=== PATIENT | female | born 1980 | race American Indian/Alaskan Native ===

== ENCOUNTER 2016-10-25 12:48 | Emergency (ER) | payer OTHER ==
[2016-10-25 12:49] VITALS: BMI 35.4
[2016-10-25 12:59] VITALS: BP 152/81; PULSE 99; RESP 18; TEMP 98.7; O2SAT 99
--- NOTE | 2016-10-25 13:31 | ED PDOC ---
Arrival/HPI - General Chief Complaint: Cough, Cold, Congestion Time Seen by Provider: 10/25/16 13:00 Historian: Patient - History of Present Illness Narrative History of Present Illness (Text): 10/25/16 13:00 This 36 yo female presents with pmh anemia, presents to this ED c/o nasal congestion, sinus pressure, and cough since this morning. Patient admits similar symptoms in the past, and Dx sinusitis. Patient denies sob, cp, abdominal pain, dizziness, weakness, diplopia, dysarthria, earache, sore throat , paresthesias, queen, n/v, or abnormal gait. Time/Duration: Other (see hpi) Context: Home Past Medical History - Provider Review Nursing Documentation Reviewed: Yes - Infectious Disease Hx of Infectious Diseases: None - Tetanus Immunization Tetanus Immunization: Unknown - Cardiac Hx Cardiac Disorders: No Hx Hypertension: No - Pulmonary Hx Tuberculosis: No - Neurological HX Cerebrovascular Accident: No Hx Seizures: No - Hematological/Oncological Hx Anemia: Yes - Musculoskeletal/Rheumatological Hx Back Pain: Yes - Genitourinary/Gynecological Hx Sexually Transmitted Diseases: No - Psychiatric Hx Depression: Yes Hx Substance Use: Yes - Past Surgical History Past Surgical History: No Previous - Surgical History Hx Dilation and Curettage: Yes Other/Comment: DNC - Anesthesia Hx Anesthesia: No Hx Anesthesia Reactions: No Hx Malignant Hyperthermia: No - Suicidal Assessment Feels Threatened In Home Enviroment: No Family/Social History - Physician Review Nursing Documentation Reviewed: Yes Family/Social History: No Known Family HX Smoking Status: Former Smoker Hx Alcohol Use: Yes Hx Substance Use: Yes Substance used: mark Hx Substance Use Treatment: No Allergies/Home Meds Allergies/Adverse Reactions: Allergies No Known Allergies Allergy (Verified 10/25/16 12:59) Review of Systems - Review of Systems Constitutional: Normal. absent: Fatigue, Weight Change, Fevers Eyes: Normal ENT: Rhinorrhea, Sinus Congestion. absent: Sore Throat Respiratory: Normal, Cough. absent: SOB, Sputum, Wheezing Cardiovascular: Normal Gastrointestinal: Normal. absent: Abdominal Pain, Nausea, Vomiting Genitourinary Female: Normal. absent: Dysuria, Frequency, Hematuria, Vaginal Bleeding Musculoskeletal: Normal Skin: Normal Neurological: Normal. absent: Headache, Dizziness Endocrine: Normal Hemo/Lymphatic: Normal Psychiatric: Normal Physical Exam Vital Signs Temp Pulse Resp BP Pulse Ox 10/25/16 12:56 98.7 F 99 H 18 152/81 H 99 Temperature: Afebrile Blood Pressure: Normal Pulse: Regular Respiratory Rate: Normal Appearance: Positive for: Well-Appearing, Non-Toxic, Comfortable Pain Distress: None Mental Status: Positive for: Alert and Oriented X 3 - Systems Exam Head: Present: Atraumatic, Normocephalic, Other (Mild frontal and maxillary sinuses tenderness) Pupils: Present: PERRL Extroacular Muscles: Present: EOMI Conjunctiva: Present: Normal Mouth: Present: Moist Mucous Membranes Neck: Present: Normal Range of Motion Respiratory/Chest: Present: Clear to Auscultation, Good Air Exchange. No: Respiratory Distress, Accessory Muscle Use Cardiovascular: Present: Regular Rate and Rhythm, Normal S1, S2. No: Murmurs Abdomen: Present: Normal Bowel Sounds. No: Tenderness, Distention, Peritoneal Signs Back: Present: Normal Inspection. No: CVA Tenderness Upper Extremity: Present: Normal Inspection, Normal ROM, NORMAL PULSES, Neurovascularly Intact, Capillary Refill < 2s. No: Cyanosis, Edema Lower Extremity: Present: Normal Inspection, NORMAL PULSES, Normal ROM, Neurovascularly Intact, Capillary Refill < 2 s. No: Edema Neurological: Present: GCS=15, CN II-XII Intact, Speech Normal, Motor Func Grossly Intact, Normal Sensory Function, Normal Cerebellar Funct, Gait Normal, Memory Normal Skin: Present: Warm, Dry, Normal Color. No: Rashes Psychiatric: Present: Alert, Oriented x 3, Normal Insight, Normal Concentration Medical Decision Making ED Course and Treatment: 10/25/16 13:31 Re-evaluation. Patient feels better. Discussed results and plan with patient who expresses understanding. All questions answered and there is agreement with the plan to discharge home with instructions. Patient stable for discharge. Return if symptoms persist or worsen Re-evaluation Time: 13:31 Reassessment Condition: Re-examined, Unchanged Disposition/Present on Arrival - Present on Arrival Any Indicators Present on Arrival: No History of DVT/PE: No History of Uncontrolled Diabetes: No Urinary Catheter: No History of Decub. Ulcer: No History Surgical Site Infection Following: None - Disposition Have Diagnosis and Disposition been Completed?: Yes Diagnosis: Sinusitis Disposition: HOME/ ROUTINE Disposition Time: 13:31 Patient Problems: Current Active Problems Problem Status Onset Sinusitis Acute Condition: GOOD Discharge Instructions (ExitCare): Upper Respiratory Infection (ED) Additional Instructions: Call private doctor for follow up visit in 1-2 days. Take medication as instructed. Return to emergency if symptoms worsen, dizziness, weakness, or abnormal walk. Prescriptions: Amoxicillin [Amoxil 500 mg Cap] 500 mg PO TID #30 cap Promethazine/Codeine [Codeine/Promethazine 10 MG/5 Ml-6.25 MG/5 Ml] 5 ml PO Q6H PRN #90 ml PRN Reason: Cough Referrals: [facility] [Outside] - Follow up with primary [facility] [Outside] - Follow up with primary Forms: WORK NOTE
== END 2016-10-25 13:59 | disposition home or self-care (01) ==
LOC: ED 12:48
DX: J32.9 Chronic sinusitis, unspecified (principal)

== ENCOUNTER 2016-12-19 19:54 | Observation (INO) | payer OTHER ==
[2016-12-19 19:56] VITALS: BMI 35.4
[2016-12-19] MEDS ORDERED: Sodium Chloride 0.9% 1,000 ML IV STA (20:34)
--- NOTE | 2016-12-19 20:38 | ED PDOC ---
Arrival/HPI - General Chief Complaint: Female Genitourinary Time Seen by Provider: 12/19/16 20:11 - History of Present Illness Narrative History of Present Illness (Text): 12/19/16 20:35 36yo female, with painful menses and heavy menstrual bleedig x3 days. Pt states she has a hx of these symptoms for the past 2 years. Pt also states that she usually has lower abd pain and constipation while she is menstruating and this is not unusual for her. Denies n/v, denies f/c. States she has no cp/sob/parrish. Denies weakness or lightheadedness. No other complaints. Past Medical History - Provider Review Nursing Documentation Reviewed: Yes - Infectious Disease Hx of Infectious Diseases: None - Tetanus Immunization Tetanus Immunization: Unknown - Cardiac Hx Cardiac Disorders: No Hx Hypertension: No - Pulmonary Hx Tuberculosis: No - Neurological HX Cerebrovascular Accident: No Hx Seizures: No - Hematological/Oncological Hx Anemia: Yes - Musculoskeletal/Rheumatological Hx Back Pain: Yes - Genitourinary/Gynecological Hx Sexually Transmitted Diseases: No - Psychiatric Hx Depression: Yes Hx Substance Use: No (denies) - Past Surgical History Past Surgical History: No Previous - Surgical History Hx Dilation and Curettage: Yes Other/Comment: DNC - Anesthesia Hx Anesthesia: No Hx Anesthesia Reactions: No Hx Malignant Hyperthermia: No - Suicidal Assessment Feels Threatened In Home Enviroment: No Family/Social History Family/Social History: Unknown Family HX Smoking Status: Current Some Days Smoker Hx Alcohol Use: Yes Frequency of alcohol use: Socially Hx Substance Use: No (denies) Substance used: mark Hx Substance Use Treatment: No Allergies/Home Meds Allergies/Adverse Reactions: Allergies No Known Allergies Allergy (Verified 10/25/16 12:59) Home Medications: Home Meds Medication Instructions Recorded Confirmed Ferrous Sulfate [Feosol] 325 mg PO DAILY 12/19/16 12/19/16 Physical Exam - Physical Exam Narrative Physical Exam (Text): 12/19/16 20:37 - Review of Systems Constitutional: Normal. absent: Fatigue, Weight Change, Fevers Eyes: Normal ENT: denies sore throat, denies tristhmus Respiratory: Normal. absent: SOB, Cough, Sputum Cardiovascular: absent: Chest Pain, Palpitations, Syncope Gastrointestinal: lower abd discomfort. absent: Diarrhea, Nausea, Vomiting Genitourinary: vaginal bleeding absent: Dysuria, Frequency, Hematuria Musculoskeletal: Normal. absent: Arthralgias, Back Pain, Neck Pain Skin: no rashes, no erythema Neurological: absent: Focal Weakness Endocrine: Normal Hemo/Lymphatic: Normal Psychiatric: No suicidal or homicidal ideations Physical exam Patient appears age appropriate in no distress, speaking full sentences without difficulty - Systems Exam Head: Present: Atraumatic, Normocephalic Pupils: Present: PERRL Extroacular Muscles: Present: EOMI Conjunctiva: Present: Normal Mouth: Present: Moist Mucous Membranes Neck: Present: Normal Range of Motion. No: MIDLINE TENDERNESS, Paraspinal Tenderness Respiratory/Chest: Present: Clear to Auscultation, Good Air Exchange. No: Respiratory Distress, Accessory Muscle Use, Tachypneic Cardiovascular: Present: Regular Rate and Rhythm, Normal S1, S2, Peripheal Pulses Present. No: Murmurs Abdomen: Present: Normal Bowel Sounds. No: Tenderness, Distention, Peritoneal Signs, Rebound, Guarding Back: Present: Normal Inspection. No: Midline Tenderness, Paraspinal Tenderness Upper Extremity: Present: Normal Inspection. No: Cyanosis, Edema Lower Extremity: Present: Normal Inspection. No: Edema Neurological: Present: GCS=15, Speech Normal, cranial nerves II through XII fully intact with no cerebellar abnormality, neurosensory fully intact. No focal neurological deficits. Skin: Present: Warm, Dry, Normal Color. No: Rashes Lymphatic: Present: OX3, NI, NC Psychiatric: Present: Alert, Oriented x 3, Normal Insight, Normal Concentration Vital Signs Reviewed: Yes Vital Signs Temp Pulse Resp BP Pulse Ox 12/19/16 19:58 99.1 F 90 20 149/96 H 98 Temperature: Afebrile Blood Pressure: Hypertensive (asymptomatic. pt informed of relevated BP and instructed to f/u with PMD) Pulse: Regular Respiratory Rate: Normal Appearance: Positive for: Well-Appearing Pain Distress: None Mental Status: Positive for: Alert and Oriented X 3 Medical Decision Making ED Course and Treatment: 12/19/16 20:38 86-year-old female with dysmenorrhea and menorrhagia. Patient states that she has a history of constipation and lower abdominal cramping during her menses and this is unusual for her. Patient also states that she has a history of anemia. Denies any chest pain, shortness of breath, dyspnea on exertion, feeling weak/dizzy or lightheaded. Differential diagnosis includes but not limited to: Anemia versus dysmenorrhea Pain medication, hydration, labs ordered. 12/19/16 21:59 Hb 6.8 VSS pt agreeable to transfusion order placed states she has no PMD at [facility], Dr. Nando montero, awaiting callback 12/19/16 22:13 Dr. Freed states to admit to hospitalist service (per area secretary) dw Dr. Cali, accepted admission pt aware of and agrees with plan 12/19/16 22:29 Chest xray interpreted by ED physician shows no pneumothorax, no cardiomegaly, no infiltrates - Critical Care Critical Care Minutes: 30 minutes - Lab Interpretations Lab Results: 12/19/16 21:23 12/19/16 21:23 Lab Results 12/19/16 21:23: Blood Type Pending, Antibody Screen Pending, Crossmatch See Detail, BBK History Checked Patient has bt 12/19/16 21:23: Sodium 135, Potassium 3.5 L, Chloride 101, Carbon Dioxide 26, Anion Gap 12, BUN 7, Creatinine 0.6, Est GFR ( Amer) > 60, Est GFR (Non- Af Amer) > 60, Random Glucose 95, Calcium 8.8, Total Bilirubin 0.3, AST 23, ALT 28, Alkaline Phosphatase 50, Total Protein 8.8 H, Albumin 3.6, Globulin 5.2, Albumin/Globulin Ratio 0.7 L 12/19/16 21:23: PT 11.8, INR 1.09 H, APTT 24.6 12/19/16 21:23: WBC 6.1, RBC 3.28 L, Hgb 6.8 L* D, Hct 22.9 L, MCV 69.8 L, MCH 20.7 L, MCHC 29.7 L, RDW 18.4 H, Plt Count 528 H, MPV 7.3, Gran % 64.5, Lymph % (Auto) 25.4, Cedar % (Auto) 8.1 H, Eos % (Auto) 1.5, Baso % (Auto) 0.5, Gran # 3.91, Lymph # 1.5, Cedar # 0.5, Eos # 0.1, Baso # 0.03 - RAD Interpretation Radiology Orders: 12/19/16 22:04 CHEST PORTABLE [RAD] Stat - Medication Orders Current Medication Orders: Discontinued Medications Sodium Chloride (Sodium Chloride 0.9%) 1,000 mls @ 1,000 mls/hr IV .Q1H STA Stop: 12/19/16 21:33 Last Admin: 12/19/16 21:33 Dose: 1,000 mls/hr Ketorolac Tromethamine (Toradol) 30 mg IVP STAT STA Stop: 12/19/16 20:35 Last Admin: 12/19/16 21:31 Dose: 30 mg Morphine Sulfate (Morphine) 4 mg IVP STAT STA Stop: 12/19/16 21:59 Disposition/Present on Arrival - Present on Arrival Any Indicators Present on Arrival: No History of DVT/PE: No History of Uncontrolled Diabetes: No Urinary Catheter: No History of Decub. Ulcer: No History Surgical Site Infection Following: None - Disposition Have Diagnosis and Disposition been Completed?: Yes Diagnosis: Anemia Disposition: HOSPITALIZED Disposition Time: 22:13 Patient Plan: Observation Patient Problems: Current Active Problems Problem Status Onset Anemia Acute Condition: FAIR Referrals: Abbey Palma MD [Primary Care Provider] - Follow up with primary Forms: [employer] ([place])
[2016-12-19 21:38] LABS: BASO # 0.03 K/mm3 (0.0-2.0); BASO % 0.5 % (0.0-3.0); EOS # 0.1 (0.0-0.7); EOS % 1.5 % (1.5-5.0); GRAN # 3.91 (1.4-6.5); GRAN % 64.5 % (50.0-68.0); LYMPH # 1.5 (1.2-3.4); LYMPH % 25.4 % (22.0-35.0); MEAN CELL VOLUME 69.8 fL (80.0-105.0); MEAN CORPUSCULAR HEMOGLOBIN 20.7 pg (25.0-35.0); MEAN CORPUSCULAR HGB CONC 29.7 g/dl (31.0-37.0); MEAN PLATELET VOLUME 7.3 fl (7.0-11.0); MONO # 0.5 (0.1-0.6); MONO % 8.1 % (1.0-6.0); PLATELET COUNT 528 10^3/uL (120.0-450.0); RBC 3.28 10^6/uL (3.5-6.1); RED CELL DISTRIBUTION WIDTH 18.4 % (11.5-14.5); WHITE BLOOD COUNT 6.1 10^3/ul (4.5-11.0)
[2016-12-19 21:43] LABS: HEMOGLOBIN 6.8 gm/dL (12.0-16.0)
[2016-12-19 21:48] LABS: INR 1.09 (0.93-1.08); PARTIAL THROMBOPLASTIN TIME 24.6 Seconds (23.7-30.8); PROTHROMBIN TIME 11.8 Seconds (9.9-11.8)
[2016-12-19 21:50] LABS: ALB/GLOB RATIO 0.7 (1.1-1.8); ALBUMIN 3.6 g/dL (3.0-4.8); ALT/SGPT 28 U/L (7-56); AST/SGOT 23 U/L (15-39); BLOOD UREA NITROGEN 7 mg/dL (7-21); CALCIUM 8.8 mg/dL (8.4-10.5); GFR AFRICAN-AMERICAN > 60; GFR NON-AFRICAN AMERICAN > 60
[2016-12-19] MEDS ORDERED: Morphine 4 mg/ml ISec IVP STA (21:58)
[2016-12-19] MEDS ORDERED: Potassium Chloride 40 mEq/30 ml LIQ UD PO STA (23:11)
--- NOTE | 2016-12-19 23:51 | CP.PCM.HP ---
<Skip Ortiz - Last Filed: 12/19/16 23:45> History of Present Illness - History of Present Illness History of Present Illness: CC: abd pain, weakness, lightheadedness 36 F with pmh of anemia and menorrhagia presents to the ED with abdominal pain, lightheadedness, and weak. Pt states that her period started 3 days ago. She states that this time it is more painful and bleeding more than usual. She states that her abd pain is 9/10 in severity. Denies taking anything for the pain. Pt states that it radiates to her R back. Pt also c/o weakness and lightness. She denies any falls. No other complaints. Denies any f/c, sob, cp, palpitations, n/v/d. PMH: Menorrhagia PSH: D & C last jan med: denies ALL: none SH: drinks and smoke twice a month, denies any drug use, FH: denies Present on Admission - Present on Admission Any Indicators Present on Admission: No Review of Systems - Review of Systems All systems: reviewed and no additional remarkable complaints except (HPI) Past Patient History - Infectious Disease Hx of Infectious Diseases: None - Tetanus Immunizations Tetanus Immunization: Unknown - Past Social History Smoking Status: Current Some Days Smoker - CARDIAC Hx Cardiac Disorders: No Hx Hypertension: No - PULMONARY Hx Tuberculosis: No - NEUROLOGICAL HX Cerebrovascular Accident: No Hx Seizures: No - HEMATOLOGICAL/ONCOLOGICAL Hx Anemia: Yes - MUSCULOSKELETAL/RHEUMATOLOGICAL Hx Back Pain: Yes - GENITOURINARY/GYNECOLOGICAL Hx Sexually Transmitted Disorders: No - PSYCHIATRIC Hx Depression: Yes Hx Substance Use: No (denies) - SURGICAL HISTORY Hx Dilation and Curettage: Yes Other/Comment: DNC - ANESTHESIA Hx Anesthesia: No Hx Anesthesia Reactions: No Hx Malignant Hyperthermia: No Meds Allergies/Adverse Reactions: Allergies Allergy/AdvReac Type Severity Reaction Status Date / Time No Known Allergies Allergy Verified 10/25/16 12:59 Physical Exam - Constitutional Appears: No Acute Distress - Head Exam Head Exam: ATRAUMATIC, NORMAL INSPECTION, NORMOCEPHALIC - Eye Exam Eye Exam: EOMI, Normal appearance, PERRL Pupil Exam: NORMAL ACCOMODATION, PERRL - ENT Exam ENT Exam: Mucous Membranes Moist, Normal Exam - Neck Exam Neck exam: Positive for: Normal Inspection - Respiratory Exam Respiratory Exam: Clear to Auscultation Bilateral, NORMAL BREATHING PATTERN. absent: Wheezes - Cardiovascular Exam Cardiovascular Exam: REGULAR RHYTHM, RRR, +S1, +S2 - GI/Abdominal Exam GI & Abdominal Exam: Normal Bowel Sounds, Soft. absent: Tenderness - Extremities Exam Extremities exam: Positive for: normal inspection. Negative for: calf tenderness - Back Exam Back exam: NORMAL INSPECTION - Neurological Exam Neurological exam: Alert, CN II-XII Intact, Normal Gait, Oriented x3, Reflexes Normal - Psychiatric Exam Psychiatric exam: Normal Affect, Normal Mood - Skin Skin Exam: Dry, Intact, Normal Color, Warm Results - Vital Signs Recent Vital Signs: Last Vital Signs Temp 99.1 F 12/19/16 19:58 Pulse 88 12/19/16 22:45 Resp 18 12/19/16 22:45 BP 136/84 12/19/16 22:45 Pulse Ox 99 12/19/16 22:45 - Labs Result Diagrams: 12/19/16 21:23 12/19/16 21:23 Assessment & Plan - Assessment and Plan (Free Text) Assessment: 36 F with pmh of anemia and menorrhagia presents to the ED with abdominal pain, lightheadedness, and weak. Found to be anemic with Hb of 6.8. 1. Symptomatic anemia - Hb of 6.8 - Obtain consent for blood transfusion - Transfuse 1 unit PRBC - F/u CBC in the am - F/U anemia work up - Pain control - Daily labs 2. Hypokalemia - KCl 40meq PO x 1 - F/u morning CMP 3. GI/DVT ppx - protonix and SCDs Case and plan was seen, reviewed and discussed with Dr Cali. <Krish Cali - Last Filed: 12/20/16 06:14> Results - Vital Signs Recent Vital Signs: Last Vital Signs Temp 98.8 F 12/20/16 05:59 Pulse 76 12/20/16 05:59 Resp 18 12/20/16 05:59 BP 107/67 12/20/16 05:59 Pulse Ox 99 12/19/16 22:45 - Labs Result Diagrams: 12/19/16 21:23 12/19/16 21:23 Attending/Attestation - Attestation I have personally seen and examined this patient.: Yes I have fully participated in the care of the patient.: Yes I have reviewed all pertinent clinical information: Yes Notes (Text): 12/20/16 06:12 Patient was seen when she was in when she was in room #9 in the ER. Agree with history, physical examination, assessment and plan.
[2016-12-20] MEDS ORDERED: Pantoprazole 40 mg EC Tab PO SCH (06:00)
--- NOTE | 2016-12-20 07:49 | RAD ---
HISTORY: anemia, admission COMPARISON: 03/12/2016. FINDINGS: LUNGS: No active pulmonary disease. PLEURA: No significant pleural effusion identified, no pneumothorax apparent. CARDIOVASCULAR: There is borderline cardiomegaly. OSSEOUS STRUCTURES: No significant abnormalities. VISUALIZED UPPER ABDOMEN: Normal. OTHER FINDINGS: None. IMPRESSION: No active pulmonary disease.
[2016-12-20 09:08] LABS: BASO # 0.03 K/mm3 (0.0-2.0); BASO % 0.6 % (0.0-3.0); EOS # 0.1 (0.0-0.7); GRAN # 2.65 (1.4-6.5); GRAN % 56.4 % (50.0-68.0); HEMOGLOBIN 8.4 gm/dL (12.0-16.0); LYMPH # 1.5 (1.2-3.4); LYMPH % 32.1 % (22.0-35.0); MEAN CELL VOLUME 72.9 fL (80.0-105.0); MEAN CORPUSCULAR HEMOGLOBIN 22.5 pg (25.0-35.0); MEAN CORPUSCULAR HGB CONC 30.9 g/dl (31.0-37.0); MEAN PLATELET VOLUME 7.2 fl (7.0-11.0); MONO # 0.4 (0.1-0.6); MONO % 7.9 % (1.0-6.0); PLATELET COUNT 454 10^3/uL (120.0-450.0); RBC 3.73 10^6/uL (3.5-6.1); RED CELL DISTRIBUTION WIDTH 19.4 % (11.5-14.5); WHITE BLOOD COUNT 4.7 10^3/ul (4.5-11.0)
[2016-12-20 09:19] LABS: ALB/GLOB RATIO 0.7 (1.1-1.8); ALBUMIN 3.4 g/dL (3.0-4.8); ALT/SGPT 19 U/L (7-56); AST/SGOT 26 U/L (15-39); BLOOD UREA NITROGEN 6 mg/dL (7-21); CALCIUM 8.5 mg/dL (8.4-10.5); GFR AFRICAN-AMERICAN > 60; GFR NON-AFRICAN AMERICAN > 60; HDL CHOLESTEROL 28 mg/dL (29-60); MAGNESIUM 1.8 mg/dL (1.7-2.2)
[2016-12-20 09:25] LABS: % IRON SATURATION 14 % (20-55); IRON 58 ug/dL (45-180); TOTAL IRON BINDING CAPACITY 404 ug/dL (265-497)
[2016-12-20 09:29] LABS: LDL CHOLESTEROL 65 mg/dL (0-129)
[2016-12-20] MEDS ORDERED: POLYETHYLENE GLYCOL 3350 17 GM/Dose PACKET PO ONE (12:31)
--- NOTE | 2016-12-20 15:39 | US ---
HISTORY: Menorrhagia COMPARISON: None available. TECHNIQUE: Transvaginal pelvic ultrasound was performed. FINDINGS: UTERUS: Measures 13.6 x 8.2 x 9.4 cm. Anteverted and enlarged. There is heterogeneous myometrial echotexture without discrete mass. The central endometrial echo complex is thickened measures 2.4 cm. CERVIX: No cervical abnormality identified. RIGHT OVARY: Measures 4.1 x 2.1 x 3.1 cm. No solid mass. Normal flow. LEFT OVARY: Not visualized. FREE FLUID: No significant free fluid noted. OTHER FINDINGS: None. IMPRESSION: Enlarged uterus with heterogeneous myometrial echotexture without focal mass. Findings could represent adenomyosis. Clinical correlation and follow-up is advised. Thick central endometrial echo complex.
--- NOTE | 2016-12-20 16:21 | CP.PCM.DIS ---
<Elida Cha - Last Filed: 12/20/16 21:37> Provider - Provider Date of Admission: 12/19/16 22:13 Attending physician: Sabi Simons MD Primary care physician: Abbey Palma MD Time Spent in preparation of Discharge (in minutes): 31 Diagnosis - Discharge Diagnosis (1) Anemia Status: Acute Hospital Course - Lab Results Lab Results: Most Recent Lab Values WBC 4.7 10^3/ul (4.5-11.0) D 12/20/16 09:00 RBC 3.73 10^6/uL (3.5-6.1) 12/20/16 09:00 Hgb 8.4 gm/dL (12.0-16.0) L 12/20/16 09:00 Hct 27.2 % (36.0-48.0) L 12/20/16 09:00 MCV 72.9 fL (80.0-105.0) L 12/20/16 09:00 MCH 22.5 pg (25.0-35.0) L 12/20/16 09:00 MCHC 30.9 g/dl (31.0-37.0) L 12/20/16 09:00 RDW 19.4 % (11.5-14.5) H 12/20/16 09:00 Plt Count 454 10^3/uL (120.0-450.0) H 12/20/16 09:00 MPV 7.2 fl (7.0-11.0) 12/20/16 09:00 Gran % 56.4 % (50.0-68.0) 12/20/16 09:00 Lymph % (Auto) 32.1 % (22.0-35.0) 12/20/16 09:00 [place] % (Auto) 7.9 % (1.0-6.0) H 12/20/16 09:00 Eos % (Auto) 3.0 % (1.5-5.0) 12/20/16 09:00 Baso % (Auto) 0.6 % (0.0-3.0) 12/20/16 09:00 Gran # 2.65 (1.4-6.5) 12/20/16 09:00 Lymph # 1.5 (1.2-3.4) 12/20/16 09:00 [place] # 0.4 (0.1-0.6) 12/20/16 09:00 Eos # 0.1 (0.0-0.7) 12/20/16 09:00 Baso # 0.03 K/mm3 (0.0-2.0) 12/20/16 09:00 PT 11.8 Seconds (9.9-11.8) 12/19/16 21:23 INR 1.09 (0.93-1.08) H 12/19/16 21:23 APTT 24.6 Seconds (23.7-30.8) 12/19/16 21:23 Sodium 138 mmol/L (132-148) 12/20/16 05:00 Potassium 3.9 mmol/L (3.6-5.0) 12/20/16 05:00 Chloride 105 mmol/L (98-107) 12/20/16 05:00 Carbon Dioxide 25 mmol/L (21-33) 12/20/16 05:00 Anion Gap 12 (10-20) 12/20/16 05:00 BUN 6 mg/dL (7-21) L 12/20/16 05:00 Creatinine 0.6 mg/dL (0.5-1.4) 12/20/16 05:00 Est GFR ( Amer) > 60 12/20/16 05:00 Est GFR (Non-Af Amer) > 60 12/20/16 05:00 Random Glucose 93 mg/dL (70-110) 12/20/16 05:00 Calcium 8.5 mg/dL (8.4-10.5) 12/20/16 05:00 Phosphorus 4.8 mg/dL (2.5-4.5) H 12/20/16 05:00 Magnesium 1.8 mg/dL (1.7-2.2) 12/20/16 05:00 Iron 58 ug/dL (45-180) 12/20/16 05:00 TIBC 404 ug/dL (265-497) 12/20/16 05:00 % Saturation 14 % (20-55) L 12/20/16 05:00 Total Bilirubin 0.5 mg/dL (0.2-1.3) 12/20/16 05:00 AST 26 U/L (15-39) 12/20/16 05:00 ALT 19 U/L (7-56) 12/20/16 05:00 Alkaline Phosphatase 43 U/L (38-133) 12/20/16 05:00 Total Protein 8.3 g/dL (5.8-8.3) 12/20/16 05:00 Albumin 3.4 g/dL (3.0-4.8) 12/20/16 05:00 Globulin 4.8 gm/dL 12/20/16 05:00 Albumin/Globulin Ratio 0.7 (1.1-1.8) L 12/20/16 05:00 Triglycerides 63 mg/dL (35-160) 12/20/16 05:00 Cholesterol 116 mg/dL (130-200) L 12/20/16 05:00 LDL Cholesterol Direct 65 mg/dL (0-129) 12/20/16 05:00 HDL Cholesterol 28 mg/dL (29-60) L 12/20/16 05:00 TSH 3rd Generation 1.73 mIU/mL (0.46-4.68) 12/20/16 05:00 Blood Type A POSITIVE 12/19/16 21:23 Antibody Screen Negative 12/19/16 21:23 Crossmatch See Detail 12/19/16 21:23 BBK History Checked Patient has bt 12/19/16 21:23 - Hospital Course Hospital Course: 36 F with pmh of anemia and menorrhagia presents to the ED with abdominal pain, lightheadedness, and weak. Pt states that her period started 3 days ago. She states that this time it is more painful and bleeding more than usual. She states that her abd pain is 9/10 in severity. Denies taking anything for the pain. Pt states that it radiates to her R back. Pt also c/o weakness and lightness. She denies any falls. No other complaints. Denies any f/c, sob, cp, palpitations, n/v/d. Hgb was noted to be 6.8. Patient was admitted for observation and given two units of PRBCs. Post transfusion hgb abisai appropriately and was 8.4. TVUS was performed and showed enlarged uterus with heterogenous myometrial echotexture without focal mass, could represent adenomyosis, thick central endometrial echo complex. During her stay, vaginal bleeding improved. Discussed with patient the benefit of being on OCPs, patient reports that she does not want to take control. Patient was complaining of constipation, stated that she had not had a BM in 3 days, Miralax and colace given. Patient had a BM prior to discharge, instructed her to take colace OTC for constipation as needed. Patient was also hypokalemic on admission, potassium was repleted. Repeat potassium level was normal. On day of discharge patient was ambulating and tolerating diet, pt stated that her symptoms resolved and that she feels better. Patient instructed to follow up with [facility] to discuss further management on menorrhagia. Patient also instructed to follow up PMD within 1 week. Patient desires to recieve IV iron as an outpatient. Patient was medically stable prior to discharge. All questions and concerns were addressed. Discharge Exam - Head Exam Head Exam: ATRAUMATIC, NORMAL INSPECTION, NORMOCEPHALIC - Eye Exam Eye Exam: EOMI, Normal appearance Pupil Exam: NORMAL ACCOMODATION - ENT Exam ENT Exam: Mucous Membranes Moist - Neck Exam Neck exam: Full Rom - Respiratory Exam Respiratory Exam: Clear to PA & Lateral, NORMAL BREATHING PATTERN, UNREMARKABLE. absent: Rales, Rhonchi, Wheezes - Cardiovascular Exam Cardiovascular Exam: REGULAR RHYTHM, +S1, +S2 - GI/Abdominal Exam GI & Abdominal Exam: Normal Bowel Sounds, Soft, Unremarkable. absent: Guarding , Rigid, Tenderness - Extremities Exam Extremities exam: normal inspection, pedal pulses present - Neurological Exam Neurological exam: Alert, CN II-XII Intact, Oriented x3 - Psychiatric Exam Psychiatric exam: Normal Affect, Normal Mood - Skin Skin Exam: Normal Color, Warm Discharge Plan - Follow Up Plan Condition: FAIR Disposition: HOME/ ROUTINE Instructions: Anemia (DC) Additional Instructions: Patient is clear for discharge home, Patient to continue Iron PO, F/U with [facility] within 1 week Referrals: Abbey Palma MD [Primary Care Provider] - <Sabi Simons - Last Filed: 12/20/16 22:15> Provider - Provider Date of Admission: 12/19/16 22:13 Attending physician: Sabi Simons MD Primary care physician: Abbey Palma MD Hospital Course - Lab Results Lab Results: Most Recent Lab Values WBC 4.7 10^3/ul (4.5-11.0) D 12/20/16 09:00 RBC 3.73 10^6/uL (3.5-6.1) 12/20/16 09:00 Hgb 8.4 gm/dL (12.0-16.0) L 12/20/16 09:00 Hct 27.2 % (36.0-48.0) L 12/20/16 09:00 MCV 72.9 fL (80.0-105.0) L 12/20/16 09:00 MCH 22.5 pg (25.0-35.0) L 12/20/16 09:00 MCHC 30.9 g/dl (31.0-37.0) L 12/20/16 09:00 RDW 19.4 % (11.5-14.5) H 12/20/16 09:00 Plt Count 454 10^3/uL (120.0-450.0) H 12/20/16 09:00 MPV 7.2 fl (7.0-11.0) 12/20/16 09:00 Gran % 56.4 % (50.0-68.0) 12/20/16 09:00 Lymph % (Auto) 32.1 % (22.0-35.0) 12/20/16 09:00 [place] % (Auto) 7.9 % (1.0-6.0) H 12/20/16 09:00 Eos % (Auto) 3.0 % (1.5-5.0) 12/20/16 09:00 Baso % (Auto) 0.6 % (0.0-3.0) 12/20/16 09:00 Gran # 2.65 (1.4-6.5) 12/20/16 09:00 Lymph # 1.5 (1.2-3.4) 12/20/16 09:00 [place] # 0.4 (0.1-0.6) 12/20/16 09:00 Eos # 0.1 (0.0-0.7) 12/20/16 09:00 Baso # 0.03 K/mm3 (0.0-2.0) 12/20/16 09:00 PT 11.8 Seconds (9.9-11.8) 12/19/16 21:23 INR 1.09 (0.93-1.08) H 12/19/16 21:23 APTT 24.6 Seconds (23.7-30.8) 12/19/16 21:23 Sodium 138 mmol/L (132-148) 12/20/16 05:00 Potassium 3.9 mmol/L (3.6-5.0) 12/20/16 05:00 Chloride 105 mmol/L (98-107) 12/20/16 05:00 Carbon Dioxide 25 mmol/L (21-33) 12/20/16 05:00 Anion Gap 12 (10-20) 12/20/16 05:00 BUN 6 mg/dL (7-21) L 12/20/16 05:00 Creatinine 0.6 mg/dL (0.5-1.4) 12/20/16 05:00 Est GFR ( Amer) > 60 12/20/16 05:00 Est GFR (Non-Af Amer) > 60 12/20/16 05:00 Random Glucose 93 mg/dL (70-110) 12/20/16 05:00 Hemoglobin A1c 5.5 % (4.2-6.5) 12/20/16 05:00 Calcium 8.5 mg/dL (8.4-10.5) 12/20/16 05:00 Phosphorus 4.8 mg/dL (2.5-4.5) H 12/20/16 05:00 Magnesium 1.8 mg/dL (1.7-2.2) 12/20/16 05:00 Iron 58 ug/dL (45-180) 12/20/16 05:00 TIBC 404 ug/dL (265-497) 12/20/16 05:00 % Saturation 14 % (20-55) L 12/20/16 05:00 Transferrin 313.76 mg/dL (206-381) 12/20/16 05:00 Total Bilirubin 0.5 mg/dL (0.2-1.3) 12/20/16 05:00 AST 26 U/L (15-39) 12/20/16 05:00 ALT 19 U/L (7-56) 12/20/16 05:00 Alkaline Phosphatase 43 U/L (38-133) 12/20/16 05:00 Total Protein 8.3 g/dL (5.8-8.3) 12/20/16 05:00 Albumin 3.4 g/dL (3.0-4.8) 12/20/16 05:00 Globulin 4.8 gm/dL 12/20/16 05:00 Albumin/Globulin Ratio 0.7 (1.1-1.8) L 12/20/16 05:00 Triglycerides 63 mg/dL (35-160) 12/20/16 05:00 Cholesterol 116 mg/dL (130-200) L 12/20/16 05:00 LDL Cholesterol Direct 65 mg/dL (0-129) 12/20/16 05:00 HDL Cholesterol 28 mg/dL (29-60) L 12/20/16 05:00 Vitamin B12 282 pg/mL (239-931) 12/20/16 05:00 Folate 16.5 ng/mL 12/20/16 05:00 TSH 3rd Generation 1.73 mIU/mL (0.46-4.68) 12/20/16 05:00 Blood Type A POSITIVE 12/19/16 21:23 Antibody Screen Negative 12/19/16 21:23 Crossmatch See Detail 12/19/16 21:23 BBK History Checked Patient has bt 12/19/16 21:23 Attending/Attestation - Attestation I have personally seen and examined this patient.: Yes I have fully participated in the care of the patient.: Yes I have reviewed all pertinent clinical information, including history, physical exam and plan: Yes Notes (Text): 12/20/16 22:04 36 year old female with past medical history of chronic anemia and menorrhagia who presented with lower abdominal cramping, lightheadedness and weakness. She was found to have symptomatic anemia. Her hemoglobin improved to baseline, from 6.8 to 8.4 after prbc transfusion. She had a transvaginal ultrasound which showed enlarged uterus with heterogenous myometrial echotexture without focal mass, could represent adenomyosis, thick central endometrial echo complex. Findings were discussed with patient as well as per diem physical therapist assistant who recommended close outpatient [facility] follow up. Patient is discharged home to follow up with her pmd. Follow up with per diem physical therapist assistant. Continue with iron supplements. Continue with colace for constipation. Sabi Simons MD Hospitalist.
[2016-12-20 16:45] LABS: TRANSFERRIN 313.76 mg/dL (206-381)
[2016-12-20 16:53] VITALS: BP 155/96; PULSE 75; RESP 18; TEMP 98.7; O2SAT 97
[2016-12-20 17:36] LABS: FOLATE 16.5 ng/mL
== END 2016-12-20 18:08 | disposition home or self-care (01) ==
LOC: ED 19:54 → ERH 22:13 → 3RNO 23:17
PROVIDERS: ADMIT Internal Medicine; ATTEND Internal Medicine
DX: D64.9 Anemia, unspecified (principal); N92.0 Excessive and frequent menstruation with regular cycle; R53.1 Weakness; R42 Dizziness and giddiness; E87.6 Hypokalemia; N85.2 Hypertrophy of uterus; K59.00 Constipation, unspecified
CPT/HCPCS: 36415; 36430; 71010; 76830; 80053; 80061; 82607; 82746; 83036; 83540; 83550; 83735; 84100; 84443; 85025; 85610; 85730; 86850; 86900; 86920; 96361; 96374; 96375; 99285; G0378; J1885; J2270; J3480; J7040; P9016

== ENCOUNTER 2017-01-07 11:46 | Emergency (ER) | payer OTHER ==
[2017-01-07 12:05] VITALS: BMI 31.4
[2017-01-07 12:09] VITALS: RESP 19; TEMP 97.7; O2SAT 100
--- NOTE | 2017-01-07 12:09 | ED PDOC ---
Arrival/HPI - General Time Seen by Provider: 01/07/17 12:07 Historian: Patient - History of Present Illness Narrative History of Present Illness (Text): 01/07/17 12:07 36 y/o female, pmh including iron deficiency anemia, psychiatrist history including anemia, nkda, c/o worsening of the depression. Pt. stated that she has chronic depression, been more depressed due to the 's health and feeling frustrated, no homicidal or suicidal ideation. Pt. stated that she always feels fatigue and tired because she has chronic anemia which she is on the iron supplement already, no chest pain or shortness of breath, no palpitation or night sweat, no dizziness, no other medical or psychological complaints. Past Medical History - Provider Review Nursing Documentation Reviewed: Yes - Infectious Disease Hx of Infectious Diseases: None - Tetanus Immunization Tetanus Immunization: Unknown - Cardiac Hx Cardiac Disorders: No - Pulmonary Hx Respiratory Disorders: No - Neurological Hx Neurological Disorder: No - HEENT Hx HEENT Disorder: No - Renal Hx Renal Disorder: No - Endocrine/Metabolic Hx Endocrine Disorders: No - Hematological/Oncological Hx Blood Disorders: Yes Hx Anemia: Yes - Integumentary Hx Dermatological Disorder: No - Musculoskeletal/Rheumatological Hx Musculoskeletal Disorders: No - Gastrointestinal Hx Gastrointestinal Disorders: No - Genitourinary/Gynecological Hx Genitourinary Disorders: No - Psychiatric Hx Psychophysiologic Disorder: Yes Hx Depression: Yes Hx Substance Use: No (denies) - Past Surgical History Past Surgical History: No Previous - Surgical History Other/Comment: DNC - Anesthesia Hx Anesthesia: No Hx Anesthesia Reactions: No Hx Malignant Hyperthermia: No - Suicidal Assessment Feels Threatened In Home Enviroment: No Family/Social History - Physician Review Nursing Documentation Reviewed: Yes Family/Social History: Unknown Family HX Smoking Status: Former Smoker Hx Alcohol Use: Yes Hx Substance Use: No (denies) Substance used: mark Hx Substance Use Treatment: No Allergies/Home Meds Allergies/Adverse Reactions: Allergies No Known Allergies Allergy (Verified 01/07/17 12:05) Home Medications: Home Meds Medication Instructions Recorded Confirmed Ferrous Sulfate [Feosol] 325 mg PO DAILY 12/19/16 12/19/16 Sertraline [Zoloft] 100 mg PO DAILY 01/07/17 01/07/17 Temazepam [Temazepam] 15 mg PO HS 01/07/17 01/07/17 Review of Systems - Review of Systems Constitutional: Fatigue. absent: Fevers Eyes: absent: Vision Changes ENT: absent: Hearing Changes Respiratory: absent: SOB, Cough Cardiovascular: absent: Chest Pain Gastrointestinal: absent: Abdominal Pain, Diarrhea, Nausea, Vomiting Musculoskeletal: Myalgias. absent: Arthralgias, Back Pain Neurological: absent: Headache, Dizziness, Focal Weakness, Gait Changes Psychiatric: Depression. absent: Anxiety, Suicidal Ideation Physical Exam Vital Signs Reviewed: Yes Vital Signs Temp Pulse Resp BP Pulse Ox 01/07/17 12:08 97.7 F 98 H 19 143/100 H 100 Temperature: Afebrile Blood Pressure: Normal Pulse: Regular Respiratory Rate: Normal Appearance: Positive for: Well-Appearing, Non-Toxic, Comfortable Pain Distress: None Mental Status: Positive for: Alert and Oriented X 3 - Systems Exam Head: Present: Atraumatic, Normocephalic Pupils: Present: PERRL Extroacular Muscles: Present: EOMI Conjunctiva: Present: Normal Mouth: Present: Moist Mucous Membranes Neck: Present: Normal Range of Motion Respiratory/Chest: Present: Clear to Auscultation, Good Air Exchange. No: Respiratory Distress, Accessory Muscle Use Cardiovascular: Present: Regular Rate and Rhythm, Normal S1, S2. No: Murmurs Abdomen: Present: Normal Bowel Sounds. No: Tenderness, Distention, Peritoneal Signs Back: Present: Normal Inspection Upper Extremity: Present: Normal Inspection. No: Cyanosis, Edema Lower Extremity: Present: Normal Inspection. No: Edema Neurological: Present: GCS=15, Speech Normal, Motor Func Grossly Intact, Gait Normal, Memory Normal Skin: Present: Warm, Dry, Normal Color. No: Rashes Psychiatric: Present: Alert, Oriented x 3, Normal Insight, Normal Concentration , Depressed Mood Medical Decision Making ED Course and Treatment: 01/07/17 12:08 -labs -PES paged 01/07/17 13:21 -Labs are non-significant, chronic anemia hgb 9.5 from 8.4. Pt. is medically clear for the PES evaluation -PES Anaise is here, evaluated the patient, pt. can be discharged home with outpatient psychiatric service which the patient has the information on her hand. Patient is seen here at the ER today for psychiatric care, please excuse her for her psychiatric service. -Discharge home with education on stay hydrated and follow up with the psychiatric services. Your hemoglobin is 9.5 today from previously 8.4. Follow up with your own pmd within 2 days, return to the ER for any new or worsening signs or symptoms. - Lab Interpretations Lab Results: 01/07/17 12:59 01/07/17 12:59 Lab Results 01/07/17 12:59: Salicylates < 1 L, Acetaminophen < 10.0 L 01/07/17 12:59: Sodium 137, Potassium 3.9, Chloride 104, Carbon Dioxide 23, Anion Gap 14, BUN 8, Creatinine 0.6, Est GFR ( Amer) > 60, Est GFR (Non- Af Amer) > 60, Random Glucose 93, Calcium 9.3, Total Bilirubin 0.3, AST 25, ALT 18, Alkaline Phosphatase 44, Total Protein 9.4 H, Albumin 4.3, Globulin 5.1, Albumin/Globulin Ratio 0.8 L 01/07/17 12:59: WBC 4.7, RBC 4.20, Hgb 9.5 L, Hct 30.7 L, MCV 73.1 L, MCH 22.6 L , MCHC 30.9 L, RDW 19.9 H, Plt Count 479 H, MPV 7.9, Gran % 63.6, Lymph % (Auto ) 24.7, [place] % (Auto) 8.2 H, Eos % (Auto) 2.7, Baso % (Auto) 0.8, Gran # 3.00, Lymph # 1.2, [place] # 0.4, Eos # 0.1, Baso # 0.04 I have reviewed the lab results: Yes Interpretation: No clinic. lab abnormalty - PA / [employer] / Resident Statement MD/DO has reviewed & agrees with the documentation as recorded. Disposition/Present on Arrival - Present on Arrival Any Indicators Present on Arrival: No History of DVT/PE: No History of Uncontrolled Diabetes: No Urinary Catheter: No History of Decub. Ulcer: No History Surgical Site Infection Following: None - Disposition Have Diagnosis and Disposition been Completed?: Yes Diagnosis: Chronic anemia, Chronic depression Disposition: HOME/ ROUTINE Disposition Time: 13:24 Patient Plan: Discharge Condition: GOOD Additional Instructions: Patient is seen here at the ER today for psychiatric care, please excuse her for her psychiatric service. -Discharge home with education on stay hydrated and follow up with the psychiatric services. Your hemoglobin is 9.5 today from previously 8.4. Follow up with your own pmd within 2 days, return to the ER for any new or worsening signs or symptoms. Referrals: Tiesha Land MD [Primary Care Provider] - [facility] up with [facility] [Outside] - Follow up with primary Forms: WORK NOTE
[2017-01-07 13:07] LABS: BASO # 0.04 K/mm3 (0.0-2.0); BASO % 0.8 % (0.0-3.0); EOS # 0.1 (0.0-0.7); EOS % 2.7 % (1.5-5.0); GRAN % 63.6 % (50.0-68.0); HEMATOCRIT 30.7 % (36.0-48.0); LYMPH # 1.2 (1.2-3.4); LYMPH % 24.7 % (22.0-35.0); MEAN CELL VOLUME 73.1 fl (80.0-105.0); MEAN CORPUSCULAR HEMOGLOBIN 22.6 pg (25.0-35.0); MEAN CORPUSCULAR HGB CONC 30.9 g/dl (31.0-37.0); MEAN PLATELET VOLUME 7.9 fl (7.0-11.0); MONO # 0.4 (0.1-0.6); MONO % 8.2 % (1.0-6.0); RED CELL DISTRIBUTION WIDTH 19.9 % (11.5-14.5); WHITE BLOOD COUNT 4.7 10^3/ul (4.5-11.0)
[2017-01-07 13:15] LABS: ALB/GLOB RATIO 0.8 (1.1-1.8); ALKALINE PHOSPHATASE 44 U/L (38-133); ALT/SGPT 18 U/L (7-56); AST/SGOT 25 U/L (15-39); BILIRUBIN,TOTAL 0.3 mg/dL (0.2-1.3); BLOOD UREA NITROGEN 8 mg/dL (7-21); CALCIUM 9.3 mg/dL (8.4-10.5); CARBON DIOXIDE 23 mmol/L (21-33); CHLORIDE 104 mmol/L (98-107); GFR AFRICAN-AMERICAN > 60; GLUCOSE,RANDOM 93 mg/dL (70-110); POTASSIUM 3.9 mmol/L (3.6-5.0); SODIUM 137 mmol/L (132-148); TOTAL PROTEIN 9.4 g/dL (5.8-8.3)
[2017-01-07 15:07] VITALS: BP 145/94; PULSE 94
== END 2017-01-07 13:40 | disposition home or self-care (01) ==
LOC: ED 11:46
DX: D64.9 Anemia, unspecified (principal); F32.9 Major depressive disorder, single episode, unspecified

== ENCOUNTER 2017-01-15 13:54 | Emergency (ER) | payer OTHER ==
[2017-01-15 13:58] VITALS: BMI 31.9
[2017-01-15 14:01] VITALS: RESP 18; TEMP 98.5
--- NOTE | 2017-01-15 14:52 | ED PDOC ---
Arrival/HPI <Val Sagastume - Last Filed: 01/15/17 17:12> <Perez Kinsey - Last Filed: 01/15/17 17:19> - General Chief Complaint: Abdominal Pain Time Seen by Provider: 01/15/17 13:55 - History of Present Illness Narrative History of Present Illness (Text): 01/15/17 14:52 36 year old AA female, w/ a PMH of iron deficiency anemia and depression, presents to the Emergency Room with painful menses and heavy menstrual bleeding since yesterday. The patient started her period yesterday but was awoken from her sleep at 0500 this morning due to lower abdominal cramping pains. The patient took some tylenol then went back to sleep until 1100 this morning. Upon waking back up, the patient states that the pain had intensified. She did not take anything for the pain upon waking the second time. Pt states she has been dealing with these symptoms for the past 2 years and that these are her normal period cramping pain. The patient was seen in the ED on 12/18/2016 with similar complaints. The patient was also in the ED on 01/07 with a complaint of worsening Depression. Patient states that she is not feeling depressed at the moment and that she has been feeling better since she came last week. She states that she did not take any medications this morning due to the amount of pain that she is in. Denies f/c, n/v, d/c, sob, cp, lightheadedness or dizziness. Patient has no other complaints at this time. Patient is rolling around the bed, hanging off the side of the bed, screaming and crying in pain. Patient's answers to most questions were very short due to her crying and screaming. PMH: Iron Deficiency Anemia and Depression PSH: D&C (01/2016) Family: unknown Social: former smoker (quit 2 months ago), former drinker (quit 2 months ago), admits to smoking marijuana but denies all other illicit drug use Allergy: NKDA (Perez Kinsey) Past Medical History - Provider Review Nursing Documentation Reviewed: Yes - Infectious Disease Hx of Infectious Diseases: None - Tetanus Immunization Tetanus Immunization: Unknown - Cardiac Hx Cardiac Disorders: No - Pulmonary Hx Respiratory Disorders: No - Neurological Hx Neurological Disorder: No - HEENT Hx HEENT Disorder: No - Renal Hx Renal Disorder: No - Endocrine/Metabolic Hx Endocrine Disorders: No - Hematological/Oncological Hx Blood Disorders: Yes Hx Anemia: Yes - Integumentary Hx Dermatological Disorder: No - Musculoskeletal/Rheumatological Hx Musculoskeletal Disorders: No - Gastrointestinal Hx Gastrointestinal Disorders: No - Genitourinary/Gynecological Hx Genitourinary Disorders: No - Psychiatric Hx Psychophysiologic Disorder: Yes Hx Depression: Yes Hx Substance Use: No (denies) - Past Surgical History Past Surgical History: No Previous - Surgical History Other/Comment: DNC - Anesthesia Hx Anesthesia: Yes Hx Anesthesia Reactions: No Hx Malignant Hyperthermia: No - Suicidal Assessment Feels Threatened In Home Enviroment: No <Perez Kinsey - Last Filed: 01/15/17 17:19> Family/Social History - Physician Review Nursing Documentation Reviewed: Yes Family/Social History: Unknown Family HX (hx difficult to obtain due to patient screaming in pain) Smoking Status: Former Smoker Hx Alcohol Use: Yes Hx Substance Use: No (denies) Substance used: mark Hx Substance Use Treatment: No <Perez Kinsey - Last Filed: 01/15/17 17:19> Allergies/Home Meds <Val Sagastume - Last Filed: 01/15/17 17:12> <Perez Kinsey - Last Filed: 01/15/17 17:19> Allergies/Adverse Reactions: Allergies No Known Allergies Allergy (Verified 01/15/17 13:58) Home Medications: Home Meds Medication Instructions Recorded Confirmed Ferrous Sulfate [Feosol] 325 mg PO DAILY 12/19/16 01/15/17 Sertraline [Zoloft] 100 mg PO DAILY 01/07/17 01/15/17 Temazepam [Temazepam] 15 mg PO HS 01/07/17 01/15/17 Review of Systems - Physician Review All systems were reviewed & negative as marked: Yes - Review of Systems Constitutional: Fatigue (patient states this is her baseline due to chronic anemia) Eyes: Normal. absent: Vision Changes, Photophobia Respiratory: Normal. absent: SOB Cardiovascular: Normal. absent: Chest Pain, Palpitations, Edema Gastrointestinal: Abdominal Pain (extreme suprapubic tenderness, cramping). absent: Constipation, Diarrhea, Nausea, Vomiting, Appetite Changes Genitourinary Female: Vaginal Bleeding. absent: Hematuria, Urine Output Changes , Vaginal Discharge Skin: absent: Rash Neurological: absent: Headache, Dizziness, Focal Weakness, Speech Changes Endocrine: absent: Diaphoresis Psychiatric: Depression (hx of depression, states she is in a good place mentally at this time. ). absent: Suicidal Ideation <Perez Kinsey - Last Filed: 01/15/17 17:19> Physical Exam - Physical Exam Physical Exam Limitations: Other (Patient difficult to examine due to constant flailing and movement on bed. Patient crying.) Vital Signs Reviewed: Yes Temperature: Afebrile Blood Pressure: Hypertensive (possible due to pain) Pulse: Tachycardic (patient visibally upset, crying.) Respiratory Rate: Normal Appearance: Positive for: Uncomfortable (patient visibally upset, crying. ) Pain Distress: None Mental Status: Positive for: Alert and Oriented X 3 - Systems Exam Head: Present: Atraumatic, Normocephalic Extroacular Muscles: Present: EOMI Conjunctiva: Present: Normal Mouth: Present: Moist Mucous Membranes Nose (External): Present: Atraumatic Neck: Present: Normal Range of Motion. No: JVD Respiratory/Chest: Present: Clear to Auscultation, Tender to Palpation. No: Respiratory Distress, Accessory Muscle Use, Retracting Cardiovascular: Present: Regular Rate and Rhythm, Normal S1, S2 Abdomen: Present: Tenderness (suprapubic tenderness), Normal Bowel Sounds, Guarding (voluntary guarding in the inferior midline of abdomen ). No: Distention, Peritoneal Signs, Rebound, McBurney's Point Tender, Rovsing's Sign Present, Hernias Upper Extremity: Present: Normal Inspection. No: Edema Lower Extremity: Present: Normal Inspection. No: Edema, CALF TENDERNESS Neurological: Present: GCS=15 Skin: Present: Warm, Dry. No: Rashes Psychiatric: Present: Alert, Oriented x 3. No: Normal Affect (Patient screaming crying one moment, sitting up talking on cell phone the next. ), Suicidal Ideation, Homicidal Ideation <Perez Kinsey - Last Filed: 01/15/17 17:19> Vital Signs Temp Pulse Resp BP Pulse Ox 01/15/17 14:00 98.5 F 98 H 18 161/105 H 96 Medical Decision Making <Val Sagastume - Last Filed: 08/30/17 17:12> <Perez Kinsey - Last Filed: 01/15/17 17:19> ED Course and Treatment: A 36 year old female with abdominal cramping and heavy menstrual bleeding. In agreement with resident note, which includes further HPI details. Patient was seen and evaluated with resident, came up with plan and treatment together. Report Date : 01/15/2017 15:41:31 Procedure: Transvaginal ultrasound Dictator : Ruben Del Angel MD IMPRESSION: The uterus is grossly enlarged without focal mass identified specifically. Consider diffuse fibroids or adenomyosis. Besides adenomyosis, other infiltrative myometrial pathology is possible. Consider follow-up MRI without contrast. Next item unremarkable lateral neck compartments with left ovary now identified, not previously seen on pelvic ultrasound exam 12/20/2016. The endometrium is limited evaluation due to artifact from myometrial pathology. No ultrasound evidence to suggest torsion bilaterally. 01/15/17 17:11 Patient with noted history. Labs are unremarkable. 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 She refused toradol, but took a dose of tylenol then toradol for pain. She says her pain is gone - ok for d/c. (Val Sagastume) 01/15/17 15:21 Abdominal Pain - started menstruation yesterday 01/14, possible menstrual cramping - CBC/CMP - H/H at 9.3/29.7 - this is patient's baseline - rest of blood work is unremarkable. - Lipase - WNL 24 - Coags - WNL - UDS - only positive for benzo - known prescription - Transvaginal US - uterus is grossly enlarged w/o focal mass identified specifically. COnsider diffuse fibroids or adenomyosis. Besides adenomyosis, other infiltrative myometrial pathology is posible. COnsider follow up MRI w/o contrast. Endometrium evaluation is limited due to artifact from myometrial pathology. No evidence to suggest ovarian torsion b/l. Normal flow seen b/l. - EKG - patient refused - Toradol 30mg IVP (refused); Tylenol 975mg PO given for pain management Dipso: Patient will be discharged home with a prescription for Naprosyn for pain control. 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 Patient is to return Emergency department if symptoms worsen. (Perez Kinsey) - Lab Interpretations Lab Results: 01/15/17 14:45 01/15/17 14:45 Lab Results 01/15/17 16:25: Urine Opiates Screen Negative, Urine Methadone Screen Negative, Ur Barbiturates Screen Negative, Ur Phencyclidine Scrn Negative, Ur Amphetamines Screen Negative, U Benzodiazepines Scrn Positive H, U Oth Cocaine Metabols Negative, U Cannabinoids Screen Negative 01/15/17 14:45: Alcohol, Quantitative < 10 01/15/17 14:45: Sodium 138, Potassium 3.7, Chloride 105, Carbon Dioxide 25, Anion Gap 12, BUN 3 L, Creatinine 0.6, Est GFR ( Amer) > 60, Est GFR (Non -Af Amer) > 60, Random Glucose 88, Calcium 8.9, Total Bilirubin 0.4, AST 36, ALT 17, Alkaline Phosphatase 56, Total Protein 9.1 H, Albumin 4.0, Globulin 5.1 , Albumin/Globulin Ratio 0.8 L, Lipase 24 01/15/17 14:45: PT 11.4, INR 1.06, APTT 25.3 01/15/17 14:45: WBC 5.5, RBC 4.06, Hgb 9.3 L, Hct 29.7 L, MCV 73.2 L, MCH 22.9 L , MCHC 31.3, RDW 19.5 H, Plt Count 504 H, MPV 8.0, Gran % 73.8 H, Lymph % (Auto ) 16.8 L, Baxter % (Auto) 7.1 H, Eos % (Auto) 1.6, Baso % (Auto) 0.7, Gran # 4.02 , Lymph # 0.9 L, Baxter # 0.4, Eos # 0.1, Baso # 0.04 - RAD Interpretation Radiology Orders: 01/15/17 14:24 TRANSVAGINAL [US] Stat - Medication Orders Current Medication Orders: Discontinued Medications Acetaminophen (Tylenol 325mg Tab) 975 mg PO STAT STA Stop: 01/15/17 14:43 Last Admin: 01/15/17 14:54 Dose: 975 mg Sodium Chloride (Sodium Chloride 0.9%) 1,000 mls @ 999 mls/hr IV .Q1H1M STA Stop: 01/15/17 16:52 Last Admin: 01/15/17 16:31 Dose: 999 mls/hr Ketorolac Tromethamine (Toradol) 30 mg IVP STAT STA Stop: 01/15/17 14:25 Last Admin: 01/15/17 14:47 Dose: Not Given Non-Admin Reason: Patient Refused Lactulose (Enulose) 20 gm PO ONCE STA Stop: 01/15/17 14:55 Last Admin: 01/15/17 15:49 Dose: 20 gm Tramadol HCl (Ultram) 50 mg PO STAT STA Stop: 01/15/17 15:41 Last Admin: 01/15/17 16:33 Dose: 50 mg - PA / BURNER HAND / Resident Statement MD/DO has reviewed & agrees with the documentation as recorded. MD/DO has examined the patient and agrees with the treatment plan. - Scribe Statement The provider has reviewed the documentation as recorded by the Scribe <Val Sagastume - Last Filed: 01/15/17 17:12> <Perez Kinsey - Last Filed: 01/15/17 17:19> - Scribe Statement Susy Dubois Provider Scribe Attestation: All medical record entries made by the Scribe were at my direction and personally dictated by me. I have reviewed the chart and agree that the record accurately reflects my personal performance of the history, physical exam, medical decision making, and the department course for this patient. I have also personally directed, reviewed, and agree with the discharge instructions and disposition. (Val Sagastume) Disposition/Present on Arrival - Present on Arrival Any Indicators Present on Arrival: No - Disposition Have Diagnosis and Disposition been Completed?: Yes Disposition Time: 17:00 Patient Plan: Discharge <Val Sagastume - Last Filed: 01/15/17 17:12> - Present on Arrival Any Indicators Present on Arrival: No History of DVT/PE: No History of Uncontrolled Diabetes: No Urinary Catheter: No History of Decub. Ulcer: No History Surgical Site Infection Following: None - Disposition Have Diagnosis and Disposition been Completed?: Yes Patient Plan: Discharge <Perez Kinsey - Last Filed: 01/15/17 17:19> - Disposition Diagnosis: Pelvic pain Disposition: HOME/ ROUTINE Condition: GOOD Additional Instructions: Naprosyn for pain. Follow up with your sanitizer. Return to the emergency department if any new concerning symptoms. Prescriptions: Naproxen [Naprosyn] 500 mg PO BID PRN #20 tab PRN Reason: Pain Referrals: Tiesha Land MD [Primary Care Provider] - Follow up with primary Tejas Langley MD [Medical Doctor] - Follow up with primary Forms: [employer] (Setswana)
[2017-01-15 15:25] LABS: BASO # 0.04 K/mm3 (0.0-2.0); BASO % 0.7 % (0.0-3.0); EOS # 0.1 (0.0-0.7); EOS % 1.6 % (1.5-5.0); GRAN # 4.02 (1.4-6.5); GRAN % 73.8 % (50.0-68.0); HEMATOCRIT 29.7 % (36.0-48.0); LYMPH # 0.9 (1.2-3.4); LYMPH % 16.8 % (22.0-35.0); MEAN CELL VOLUME 73.2 fl (80.0-105.0); MEAN CORPUSCULAR HEMOGLOBIN 22.9 pg (25.0-35.0); MEAN CORPUSCULAR HGB CONC 31.3 g/dl (31.0-37.0); MONO # 0.4 (0.1-0.6); MONO % 7.1 % (1.0-6.0); RED CELL DISTRIBUTION WIDTH 19.5 % (11.5-14.5); WHITE BLOOD COUNT 5.5 10^3/ul (4.5-11.0)
[2017-01-15 15:32] LABS: INR 1.06 (0.93-1.08); PARTIAL THROMBOPLASTIN TIME 25.3 Seconds (23.7-30.8)
[2017-01-15 15:34] LABS: ALB/GLOB RATIO 0.8 (1.1-1.8); ALKALINE PHOSPHATASE 56 U/L (38-133); ALT/SGPT 17 U/L (7-56); AST/SGOT 36 U/L (15-39); BILIRUBIN,TOTAL 0.4 mg/dL (0.2-1.3); BLOOD UREA NITROGEN 3 mg/dL (7-21); CALCIUM 8.9 mg/dL (8.4-10.5); CARBON DIOXIDE 25 mmol/L (21-33); CHLORIDE 105 mmol/L (98-107); GFR AFRICAN-AMERICAN > 60; GLUCOSE,RANDOM 88 mg/dL (70-110); LIPASE 24 U/L (23-300); POTASSIUM 3.7 mmol/L (3.6-5.0); SODIUM 138 mmol/L (132-148); TOTAL PROTEIN 9.1 g/dL (5.8-8.3)
--- NOTE | 2017-01-15 15:43 | US ---
HISTORY: pelvic pain - r/o ovarian torsion COMPARISON: Transvaginal pelvic ultrasound exam 12/20/2016. TECHNIQUE: Transabdominal transvaginal pelvic ultrasound were performed for evaluation of pelvic pain. FINDINGS: UTERUS: Measures 13.2 x 8.1 x 8.4 cm. Uterus is grossly enlarged in appearing somewhat anteverted. The echotexture throughout the myometrium is inhomogeneous diffusely with prominent posterior acoustic shadowing without a definitive mass to identified as solitary or even multiple fibroids. The pattern may reflect adenomyosis or other infiltrative myometrial disorder although numerous nonvisualized fibroids is still a possibility. ENDOMETRIUM: Measures 4.6 mm in diameter. The endometrium is distorted by artifact from likely in multiple tiny calcifications is difficult to evaluate as result. CERVIX: No cervical abnormality identified. RIGHT OVARY: Measures 4.5 x 1.9 x 4.7 cm. No solid mass. Normal flow. LEFT OVARY: Measures 4.1 x 1.9 x 4.3 cm. No solid mass. Normal flow. FREE FLUID: No significant free fluid noted. OTHER FINDINGS: None. IMPRESSION: The uterus is grossly enlarged without focal mass identified specifically. Consider diffuse fibroids or adenomyosis. Besides adenomyosis, other infiltrative myometrial pathology is possible. Consider follow-up MRI without contrast. Next item unremarkable lateral neck compartments with left ovary now identified, not previously seen on pelvic ultrasound exam 12/20/2016. The endometrium is limited evaluation due to artifact from myometrial pathology. No ultrasound evidence to suggest torsion bilaterally.
[2017-01-15] MEDS ORDERED: Sodium Chloride 0.9% 1,000 ML IV STA (15:52)
[2017-01-15 17:10] LABS: URINE BILIRUBIN NEGATIVE (NEGATIVE); URINE BLOOD LARGE (NEGATIVE); URINE GLUCOSE (UA) NEGATIVE (NEGATIVE); URINE KETONE TRACE mg/dL (NEGATIVE); URINE LEUKOCYTE ESTERASE NEGATIVE Leu/uL (NEGATIVE); URINE PROTEIN TRACE mg/dL (<30 mg/dL); URINE UROBILINOGEN 0.2 E.U./dL (<1 E.U./dL)
[2017-01-15 17:37] LABS: URINE APPEARANCE CLEAR (CLEAR); URINE COLOR YELLOW (YELLOW)
[2017-01-15 17:42] LABS: URINE AMORPHOUS SEDIMENT MODERATE; URINE RBC 25 - 30 /hpf (0-2)
[2017-01-15 18:18] VITALS: BP 156/72; PULSE 75; O2SAT 98
== END 2017-01-15 19:00 | disposition home or self-care (01) ==
LOC: ED 13:54
DX: R10.2 Pelvic and perineal pain (principal); D50.9 Iron deficiency anemia, unspecified
CPT/HCPCS: 76830; 80053; 80320; 80324; 80345; 80346; 80349; 80353; 80358; 80361; 81001; 83690; 83992; 85025; 85610; 85730; 96360; 99284; J7040

== ENCOUNTER 2018-04-29 11:21 | Emergency (ER) | payer MEDICAID, OTHER ==
[2018-04-29 11:22] VITALS: BMI 31.9
[2018-04-29 11:38] VITALS: RESP 18
[2018-04-29] MEDS ORDERED: Sodium Chloride 0.9% 1,000 ML IV STA (12:04)
--- NOTE | 2018-04-29 12:11 | ED PDOC ---
Arrival/HPI - General Historian: Patient - History of Present Illness Narrative History of Present Illness (Text): 04/29/18 12:05 38 y o female Past medical history Hypertension, Vitamin D deficiency, presents to the emergency department complaining of generalized body aches and headache that started this am. States that she has associated sore throat, R ear pain, and feels like her voice is getting hoarse. States her mother was recently sick with URI symptoms for the past week. Denies fever or chills. Has not taken any OTC meds for symptoms. Denies cough or productive sputum. Denies chest pain, shortness of breath, n/v/d/c, abd pain, urinary complaints, or other symptoms. Past medical history: Hypertension, vitamin D deficiency PSurgHx: hysterectomy (for hx anemia and heavy vaginal bleeding, which has since resolved as per pt) Allergies: NKDA Home meds: Pt unsure of medication names or dosages, but states she takes Hypertension med, anti-depressant, and Ca tablets Fam hx: Mom - Hypertension and epilepsy; Dad - DM2 Soc hx: admits to social cigarette smoking and EtOH use; denies illicit drug use PMD: Dr. Tiesha Land Time/Duration: 4-6 hours Symptom Onset: Sudden Symptom Course: Worsening Quality: Aching Severity Level: Moderate Activities at Onset: Rest Context: Home <Hiram Petty - Last Filed: 04/29/18 14:21> <Ramona Monroe - Last Filed: 04/29/18 16:14> - General Chief Complaint: Flu-like Symptoms Time Seen by Provider: 04/29/18 11:36 Past Medical History - Provider Review Nursing Documentation Reviewed: Yes - Travel History Have you recently traveled outside [place] w/in the past 3 mons?: No - Infectious Disease Hx of Infectious Diseases: None - Tetanus Immunization Tetanus Immunization: Unknown - Cardiac Hx Hypertension: Yes - Pulmonary Hx Tuberculosis: No - Neurological Hx Seizures: No - HEENT Hx HEENT Disorder: No - Renal Hx Renal Disorder: No - Endocrine/Metabolic Hx Endocrine Disorders: No - Hematological/Oncological Hx Anemia: Yes - Integumentary Hx Dermatological Disorder: No - Musculoskeletal/Rheumatological Hx Back Pain: Yes - Gastrointestinal Hx Gastrointestinal Disorders: No - Genitourinary/Gynecological Hx Sexually Transmitted Diseases: No - Psychiatric Hx Depression: Yes Hx Substance Use: No - Past Surgical History Past Surgical History: No Previous - Surgical History Hx Dilation and Curettage: Yes Hx Hysterectomy: Yes - Anesthesia Hx Anesthesia: Yes Hx Anesthesia Reactions: No Hx Malignant Hyperthermia: No - Suicidal Assessment Feels Threatened In Home Enviroment: No <MalindaHiram - Last Filed: 04/29/18 14:21> Family/Social History - Physician Review Nursing Documentation Reviewed: Yes Family/Social History: Diabetes, Hypertension Smoking Status: Light Smoker < 10 Cigarettes Daily Hx Alcohol Use: No Hx Substance Use: No Substance used: mark Hx Substance Use Treatment: No <Hiram Petty - Last Filed: 04/29/18 14:21> Allergies/Home Meds <Hiram Petty - Last Filed: 04/29/18 14:21> <Ramona Monroe - Last Filed: 04/29/18 16:14> Allergies/Adverse Reactions: Allergies No Known Allergies Allergy (Verified 04/29/18 11:38) Home Medications: Home Meds Medication Instructions Recorded Confirmed RX: Sertraline [Zoloft] 100 mg PO DAILY 01/07/17 04/29/18 RX: Temazepam 15 mg PO HS 01/07/17 04/29/18 Review of Systems - Physician Review All systems were reviewed & negative as marked: Yes - Review of Systems Constitutional: Fatigue. absent: Weight Change, Fevers, Night Sweats Eyes: absent: Vision Changes ENT: Voice Changes, Sore Throat. absent: Hearing Changes, Rhinorrhea, Sinus Congestion Respiratory: absent: SOB, Cough, Sputum, Wheezing Cardiovascular: absent: Chest Pain, Palpitations, Edema, SALEH Gastrointestinal: absent: Abdominal Pain, Stool Changes, Constipation, Diarrhea, Nausea, Vomiting Genitourinary Female: absent: Dysuria, Frequency, Urine Output Changes Musculoskeletal: Arthralgias, Back Pain, Myalgias. absent: Neck Pain, Joint Swelling Skin: absent: Rash, Pruritis Neurological: Headache. absent: Dizziness, Focal Weakness Endocrine: absent: Diaphoresis Hemo/Lymphatic: Adenopathy <Hiram Petty - Last Filed: 04/29/18 14:21> Physical Exam Vital Signs Reviewed: Yes Vital Signs Temp Pulse Resp BP Pulse Ox 04/29/18 11:36 98.8 F 79 18 139/94 H 96 Temperature: Afebrile Blood Pressure: Hypertensive Pulse: Regular Respiratory Rate: Normal Appearance: Positive for: Non-Toxic, Comfortable, Ill-Appearing Pain Distress: None Mental Status: Positive for: Alert and Oriented X 3 - Systems Exam Head: Present: Atraumatic, Normocephalic Pupils: Present: PERRL Extroacular Muscles: Present: EOMI Conjunctiva: Present: Normal Ears: Present: NORMAL TM. No: Erythema, Fluid Mouth: Present: Moist Mucous Membranes Pharnyx: Present: ERYTHEMA. No: EXUDATE Nose (Internal): Present: Rhinorrhea Neck: Present: Normal Range of Motion. No: JVD, Lymphadenopathy Respiratory/Chest: Present: Clear to Auscultation, Good Air Exchange. No: Respiratory Distress, Accessory Muscle Use, Wheezes, Rales, Rhonchi Cardiovascular: Present: Regular Rate and Rhythm, Normal S1, S2. No: Murmurs, Rub, Gallop Abdomen: Present: Normal Bowel Sounds. No: Tenderness, Distention, Guarding, Mass/Organomegaly Back: Present: CVA Tenderness (On L side) Upper Extremity: Present: Normal Inspection, Normal ROM, NORMAL PULSES, Neurovascularly Intact, Capillary Refill < 2s, Norm 2-Pt Discrimination. No: Cyanosis, Edema, Tenderness, Swelling, Temperature Abnormalties Lower Extremity: Present: Normal Inspection, NORMAL PULSES, Normal ROM, Neurovascularly Intact, Capillary Refill < 2 s. No: Edema, Tenderness, Temperature Abnormalties Neurological: Present: GCS=15, CN II-XII Intact, Speech Normal, Motor Func Grossly Intact, Normal Sensory Function Skin: Present: Warm, Dry, Normal Color. No: Rashes Lymphatic: Present: Cervical Adenopathy Psychiatric: Present: Alert, Oriented x 3, Normal Insight, Normal Concentration <Hiram Petty - Last Filed: 04/29/18 14:21> Vital Signs Temp Pulse Resp BP Pulse Ox 04/29/18 14:32 98.2 F 80 18 129/87 99 04/29/18 11:36 98.8 F 79 18 139/94 H 96 <Ramona Monroe - Last Filed: 04/29/18 16:14> Medical Decision Making ED Course and Treatment: 04/29/18 12:15 38 y o female Past medical history Hypertension presenting with generalized body aches and myalgias. R/o influenza, strep throat as etiologies. Plan: -Labs -IVF -Rapid strep, Rapid flu -Toradol Will continue to monitor. 04/29/18 14:21 Reassessed pt, states she is feeling better s/p Toradol and IVF. CBC and CMP wnl. U/a negative for UTI. Rapid flu and rapid strep negative. However, in light of pt's clinical symptoms and within window of 48 hrs of treatment, will prescribe pt Tamiflu at this time, for pt to take twice daily for the next 5 days. All questions and concerns addressed with pt and she is agreeable to tx plan. Will discharge pt to home at this time. Instructed to f/u with PMD within 2-3 days of ER discharge. Instructed to call PMD or return to ED if her symptoms worsen. <Hiram Petty - Last Filed: 04/29/18 14:21> ED Course and Treatment: 04/29/18 16:11 Patient seen by the resident and then evaluated by me. She is complaining of myalgias and uri complaints. Throat has scant erythema with no exudate. Tolerating po and lungs cta b/l. Normal abdominal exam and normal back exam performed by me. Strep negative. Labs grossly normal. Influenza negative but could be early presentation. Symptoms consistent with viral illness. Reports sick contacts. counselled on influenza and tamiflu and discharged with tamiflu 04/29/18 16:14 - Lab Interpretations Lab Results: 04/29/18 12:30 04/29/18 12:30 Lab Results 04/29/18 13:30: Urine Color Yellow, Urine Appearance Sl cloudy, Urine pH 7.5, Ur Specific Monroe 1.020, Urine Protein Trace H, Urine Glucose (UA) Negative, Urine Ketones Trace H, Urine Blood Negative, Urine Nitrate Negative, Urine Bilirubin Negative, Urine Urobilinogen 1.0 H, Ur Leukocyte Esterase Negative, Urine RBC Negative, Urine WBC 0 - 2, Ur Epithelial Cells 10 - 12, Urine Bacteria Small 04/29/18 12:30: Influenza Typ A,B (EIA) Negative for flu a/b 04/29/18 12:30: Sodium 137, Potassium 4.0, Chloride 105, Carbon Dioxide 26, Anion Gap 11, BUN 5 L, Creatinine 0.6 L, Est GFR ( Amer) > 60, Est GFR (Non-Af Amer) > 60, Random Glucose 106, Calcium 8.7, Total Bilirubin 0.5, AST 18, ALT 24, Alkaline Phosphatase 36 L D, Total Protein 8.5 H, Albumin 4.1, Globulin 4.5, Albumin/Globulin Ratio 0.9 L 04/29/18 12:30: WBC 3.8 L, RBC 3.97, Hgb 11.9 L D, Hct 35.5 L, MCV 89.4 D, MCH 30.0, MCHC 33.5, RDW 13.9, Plt Count 389, MPV 8.0, Gran % 52.2, Lymph % (Auto) 3 5.8 H, [place] % (Auto) 8.1 H, Eos % (Auto) 3.1, Baso % (Auto) 0.8, Gran # 2.00, Lymph # (Auto) 1.4, [place] # (Auto) 0.3, Eos # (Auto) 0.1, Baso # (Auto) 0.03 04/29/18 12:30: Grp A Beta Strep Ag Negative - Medication Orders Current Medication Orders: Discontinued Medications Sodium Chloride (Sodium Chloride 0.9%) 1,000 mls @ 999 mls/hr IV .Q1H1M STA Stop: 04/29/18 13:04 Last Admin: 04/29/18 12:30 Dose: 999 mls/hr eMAR Start Stop Document 04/29/18 12:30 [email or web address] (Rec: 04/29/18 13:20 [facility]-[id number]) Intravenous Solution Start Date 04/29/18 Start Time 12:30 Ketorolac Tromethamine (Toradol) 15 mg IVP STAT STA Stop: 04/29/18 12:05 Last Admin: 04/29/18 12:30 Dose: 15 mg MAR Pain Assessment Document 04/29/18 12:30 [email or web address] (Rec: 04/29/18 13:18 [id number]) Pain Reassessment Is this a pain reassessment? No Sleep Is patient sleeping during reassessment? No Presence of Pain Presence of Pain Yes Pain Scale Used Protocol: PSCALES Pain Scale Used Numeric Location Pain Location Body Site Generalized Description Description Constant Intensity of Pain at present 8 Pain Behavior Facial Grimacing Aggravating Factors Changing Position Alleviating Factors/Management Position Change Techniques Alleviating Factors Medication IVP Administration Document 04/29/18 12:30 [email or web address] (Rec: 04/29/18 13:18 [email or web address] [facility] [place]-[id number]) Charges for Administration # of IVP Administrations 1 <Ramona Monroe - Last Filed: 04/29/18 16:14> Disposition/Present on Arrival - Present on Arrival Any Indicators Present on Arrival: No History of DVT/PE: No History of Uncontrolled Diabetes: No Urinary Catheter: No History of Decub. Ulcer: No History Surgical Site Infection Following: None - Disposition Have Diagnosis and Disposition been Completed?: Yes Disposition Time: 14:26 Patient Plan: Discharge <Hiram Petty - Last Filed: 04/29/18 14:21> <Ramona Monroe - Last Filed: 04/29/18 16:14> - Disposition Diagnosis: Viral illness Disposition: HOME/ ROUTINE Condition: IMPROVED Discharge Instructions (ExitCare): Viral Upper Respiratory Infection, Adult (DC), Oseltamivir Print Language: MONGOLIAN Additional Instructions: Please follow-up with your primary care physician within 2-3 days of hospital discharge. Please take Tamiflu as prescribed twice daily for the next 5 days. Please drink plenty of fluids. Can take Tylenol as needed for fever. Should your symptoms recur or worsen, please call your primary care physician or report to your nearest emergency department. Prescriptions: Oseltamivir Phosphate [Tamiflu] 75 mg PO BID #10 capsule Referrals: Tiesha Land MD [Primary Care Provider] - Follow up with primary Forms: [employer] (Citizen [place])
[2018-04-29 12:43] LABS: BASO # 0.03 K/mm3 (0.0-2.0); BASO % 0.8 % (0.0-3.0); EOS # 0.1 (0.0-0.7); EOS % 3.1 % (1.5-5.0); GRAN % 52.2 % (50.0-68.0); HEMOGLOBIN 11.9 g/dL (12.0-16.0); LYMPH # 1.4 (1.2-3.4); LYMPH % 35.8 % (22.0-35.0); MEAN CELL VOLUME 89.4 fl (80.0-105.0); MEAN CORPUSCULAR HGB CONC 33.5 g/dl (31.0-37.0); MONO # 0.3 (0.1-0.6); MONO % 8.1 % (1.0-6.0); RBC 3.97 10^6/uL (3.5-6.1); RED CELL DISTRIBUTION WIDTH 13.9 % (11.5-14.5); WHITE BLOOD COUNT 3.8 10^3/uL (4.5-11.0)
[2018-04-29 12:53] LABS: ALB/GLOB RATIO 0.9 (1.1-1.8); ALBUMIN 4.1 g/dL (3.0-4.8); ALT/SGPT 24 U/L (7-56); AST/SGOT 18 U/L (14-36); BLOOD UREA NITROGEN 5 mg/dL (7-21); CALCIUM 8.7 mg/dL (8.4-10.5); GFR NON-AFRICAN AMERICAN > 60
[2018-04-29 13:49] LABS: PH,URINE 7.5 (4.7-8.0); URINE BILIRUBIN NEGATIVE (NEGATIVE); URINE BLOOD NEGATIVE (NEGATIVE); URINE GLUCOSE (UA) NEGATIVE (NEGATIVE); URINE LEUKOCYTE ESTERASE NEGATIVE Leu/uL (NEGATIVE); URINE PROTEIN TRACE mg/dL (<30 mg/dL)
[2018-04-29 13:52] LABS: URINE APPEARANCE SL CLOUDY (CLEAR); URINE COLOR YELLOW (YELLOW)
[2018-04-29 14:00] LABS: URINE BACTERIA SMALL (NEG); URINE RBC NEGATIVE /hpf (0-2); URINE WBC 0 - 2 /hpf (0-6)
[2018-04-29 14:33] VITALS: BP 129/87; PULSE 80; TEMP 98.2; O2SAT 99
== END 2018-04-29 14:33 | disposition home or self-care (01) ==
LOC: ED 11:21
DX: B34.9 Viral infection, unspecified (principal); I10 Essential (primary) hypertension; F17.210 Nicotine dependence, cigarettes, uncomplicated
CPT/HCPCS: 80053; 81001; 85025; 87070; 87430; 87804; 96374; 99283; J1885; J7030